=== PATIENT | female | born 1970 | race Caucasian/White ===

== ENCOUNTER 2016-10-25 05:26 | Day surgery (SDC) | payer OTHER ==
[~2016-10-25] VITALS: Ht 167.6 cm; Wt 102.9 kg
[~2016-10-25 05:26] MED LIST: AMLODIPINE BESYL5 MG PO; CHLORTHALIDONE25 MG PO; CYMBALTA30 MG PO; KEFLEX500 MG PO; LIPITOR10 MG PO; METOPROLOL SUC100 MG PO; MICROZIDE12.5 M1 PO; NOHOMEMEDS; PERCOCET 5/31 TABLET PO; SPIRONOLACTONE25 MG PO; ZESTRIL10 MG PO
[2016-10-25 06:02] VITALS: BP 127/83
[2016-10-25 07:13] LABS: METH RESISTANT S AUREUS PCR NEGATIVE (NEGATIVE); PROBE CHECK PASS; SPECIMEN PROCESSING CONTROL PASS
[2016-10-25 13:33] VITALS: BP 131/72
[2016-10-25 15:15] VITALS: BP 153/85
[2016-10-25 19:37] VITALS: BP 116/65
[2016-10-25 23:30] VITALS: BP 114/69
[2016-10-26 04:33] VITALS: BP 120/69
[2016-10-26 07:15] LABS: EOSINOPHIL (%) 0.4 % (0-5); HEMATOCRIT 31.9 % (36.0-46.0); IMMATURE GRANULOCYTE (%) 0.3 % (0.0-0.7); LYMPHOCYTE COUNT 1.8 K/uL (1.0-2.8); MCH 29.1 PG (29.0-34.0); MCHC 32.6 G/DL (30.0-36.0); MCV 89.4 FL (83-99); MEAN PLAT.VOLUME 10.6 uM^3 (9.5-12.4); MONOCYTE (%) 5.7 % (3-12); MONOCYTE COUNT 0.6 K/uL (0-0.8); NEUTROPHIL (%) 75.7 % (45-76); NEUTROPHIL COUNT 7.4 K/uL (1.8-6.4); PLATELET COUNT 224 K/uL (156-360); RBC DIS.WIDTH-CV 13.5 % (11.8-14.6); RBC DIS.WIDTH-SD 44.2 % (39-53); RED BLOOD COUNT 3.57 M/uL (3.80-5.20)
[2016-10-26 07:21] LABS: WHITE BLOOD COUNT 9.8 K/uL (4.1-10.2)
[2016-10-26 07:37] LABS: ANION GAP 7 MEQ/L (2-14); CHLORIDE 104 MEQ/L (99-109); GFR ESTIMATE (CALCULATED) > 59 mL/min/; GLUCOSE 117 mg/dL (70-99); POTASSIUM 3.5 MEQ/L (3.7-5.4); SAMPLE HEMOLYSIS CHECK 0; SAMPLE ICTERIC CHECK 0; SAMPLE LIPEMIA CHECK 0; SODIUM 137 MEQ/L (136-147); UREA NITROGEN (BUN) 9 mg/dL (9-23)
[2016-10-26 07:45] VITALS: BP 142/91
[2016-10-26] MEDS ORDERED: ENDOCET 5-3251 EACH PO (10:18)
[2016-10-26] MEDS ORDERED: MOTRIN800 MG PO (10:18)
== END 2016-10-26 10:52 | disposition home or self-care (01) ==
LOC: SDC 05:26 → 2SOUTH 11:44 → 2EASTP 13:27 → SDC 15:31 → 2EASTP 10-26 10:52
PROVIDERS: Obstetrics & Gynecology
DX: N93.8 Other specified abnormal uterine and vaginal bleeding (principal); N92.4 Excessive bleeding in the premenopausal period; N94.6 Dysmenorrhea, unspecified; N84.0 Polyp of corpus uteri; N80.0 Endometriosis of uterus; N73.6 Female pelvic peritoneal adhesions (postinfective); N72 Inflammatory disease of cervix uteri; I10 Essential (primary) hypertension; R78.5 Finding of other psychotropic drug in blood; L30.9 Dermatitis, unspecified; F41.1 Generalized anxiety disorder; J45.20 Mild intermittent asthma, uncomplicated; E11.21 Type 2 diabetes mellitus with diabetic nephropathy; E66.09 Other obesity due to excess calories; Z68.36 Body mass index [BMI] 36.0-36.9, adult; Z82.49 Family history of ischemic heart disease and other diseases of the circulatory system; Z83.49 Family history of other endocrine, nutritional and metabolic diseases; Z82.3 Family history of stroke
CPT/HCPCS: 80048; 85025; 87641; 88307; G0378; J0131; J0330; J0690; J1100; J1170; J1644; J1885; J1940; J2250; J2270; J2405; J2710; J2765; J3010; J7120; S0020

== ENCOUNTER 2017-06-08 10:30 | Emergency (ER) | payer OTHER ==
[~2017-06-08] VITALS: Ht 167.6 cm; Wt 106.9 kg
[~2017-06-08 10:30] MED LIST changes: +ENDOCET 5-3251 EACH PO; +MOTRIN800 MG PO
[2017-06-08 10:51] LABS: EOSINOPHIL (%) 1.1 % (0-5); EOSINOPHIL COUNT 0.1 K/uL (0-0.3); HEMATOCRIT 36.8 % (36.0-46.0); IMMATURE GRANULOCYTE (%) 0.3 % (0.0-0.7); LYMPHOCYTE COUNT 1.8 K/uL (1.0-2.8); MCH 29.5 PG (29.0-34.0); MCHC 33.7 G/DL (30.0-36.0); MCV 87.4 FL (83-99); MEAN PLAT.VOLUME 10.5 uM^3 (9.5-12.4); MONOCYTE (%) 5.8 % (3-12); MONOCYTE COUNT 0.4 K/uL (0-0.8); NEUTROPHIL (%) 63.7 % (45-76); PLATELET COUNT 257 K/uL (156-360); RBC DIS.WIDTH-CV 13.1 % (11.8-14.6); RBC DIS.WIDTH-SD 41.7 % (39-53); RED BLOOD COUNT 4.21 M/uL (3.80-5.20); WHITE BLOOD COUNT 6.3 K/uL (4.1-10.2)
[2017-06-08 11:02] LABS: CHLORIDE 111 mEq/L (99-109); POTASSIUM 3.7 mEq/L (3.7-5.4); SODIUM 139 mEq/L (136-147)
[2017-06-08 11:04] LABS: GLUCOSE 170 mg/dL (70-99)
[2017-06-08 11:06] LABS: ANION GAP 9 MEQ/L (2-14); TOTAL BILIRUBIN 0.4 mg/dL (0.0-1.0)
[2017-06-08 11:08] LABS: ALKALINE PHOSPHATASE 114 IU/L (3-129); GFR ESTIMATE (CALCULATED) > 59 mL/min/
[2017-06-08 11:09] LABS: UREA NITROGEN (BUN) 9 mg/dL (9-23)
[2017-06-08 11:12] LABS: TROP-I INTERPRETATION NEGATIVE; TROPONIN-I < 0.01 ng/mL (0.0-0.30)
[2017-06-08 13:10] VITALS: BP 128/95
== END 2017-06-08 13:22 | disposition home or self-care (01) ==
LOC: EME → EDBD 10:30 → EME 10:30
PROVIDERS: Emergency Medicine
DX: I10 Essential (primary) hypertension (principal); R42 Dizziness and giddiness; R51 Headache; E78.5 Hyperlipidemia, unspecified
CPT/HCPCS: 71020; 80053; 84484; 85025; 93005; 99281; 99285